=== PATIENT | female | born 1980 | race Caucasian/White ===

== ENCOUNTER 2021-12-31 14:11 | Inpatient (IN) | payer OTHER ==
[2021-12-31] MEDS ORDERED: IBUPROFEN 400 MG TABLET (FP) PO PRN (15:18)
[2021-12-31] MEDS ORDERED: METHOCARBAMOL 500 MG TABLET PO PRN (15:18)
[2021-12-31] MEDS ORDERED: MAG HYDROX/AL HYDROX/SIMETH 30 ML UNIT-DOSE CUP PO PRN (15:18)
[2021-12-31] MEDS ORDERED: ONDANSETRON *ODT* 4 MG TABLET SL PRN (15:18)
[2021-12-31] MEDS ORDERED: BISMUTH SUBSALICYLATE 524 MG/30 ML PO PRN (15:18)
[2021-12-31] MEDS ORDERED: MAGNESIUM CITRATE 300 ML BOTTLE PO PRN (15:18)
[2021-12-31] MEDS ORDERED: ACETAMINOPHEN 325 MG TABLET (FP) PO PRN ×2 (15:18)
[2021-12-31] MEDS ORDERED: MENTHOL/PHENOL 1 EACH UD MM PRN (15:18)
[2021-12-31] MEDS ORDERED: MAGNESIUM HYDROX 2400MG/30ML ORAL SUSPENSION 30 ML CUP PO PRN (15:18)
[2021-12-31] MEDS ORDERED: LOPERAMIDE HCL 2 MG CAPSULE PO PRN (15:18)
[2021-12-31 16:06] VITALS: BMI 38.2
[2021-12-31] MEDS: NICOTINE 10 MG CARTRIDGE (INHALER) IH PRN (19:43)
[2021-12-31] MEDS: hydrOXYzine PAMOATE 25 MG CAPSULE (FP) PO SCH ×2 (19:45→22:02)
[2021-12-31] MEDS ORDERED: MELATONIN 5 MG TABLETS PO SCH (22:00)
[2021-12-31] MEDS ORDERED: THIAMINE HCL 100 MG TABLET (FP) PO SCH (22:00)
[2022-01-01] MEDS: hydrOXYzine PAMOATE 25 MG CAPSULE (FP) PO SCH ×4 (05:18→18:09)
[2022-01-01] MEDS ORDERED: PRENATAL VITAMINS W/ FOLIC ACID TABLET (FP) PO SCH (10:00)
[2022-01-01] MEDS ORDERED: lamoTRIgine 25 MG TABLET PO SCH (10:00)
[2022-01-01] MEDS ORDERED: SERTRALINE HCL 50 MG TABLET (FP) PO SCH (10:00)
[2022-01-01 11:18] LABS: CALCIUM 8.2 mg/dL (8.5-10.1)
[2022-01-01 11:19] LABS: ALBUMIN 2.9 g/dl (3.4-5.0); BLOOD UREA NITROGEN 13.2 mg/dL (7-18)
[2022-01-01 11:22] LABS: CREATININE 0.8 mg/dL (0.55-1.3)
[2022-01-01 11:23] LABS: BILIRUBIN,TOTAL 0.2 mg/dL (0.2-1)
[2022-01-01 11:26] LABS: HEMATOCRIT 34.6 % (32.4-45.2); MCH 27.1 pg (25.7-33.7); MCHC 34.5 g/dl (32.0-36.0); MEAN CELL VOLUME 78.3 fl (80-96); MEAN PLT VOLUME 8.7 fl (7.5-11.1); PLATELET COUNT 238 10^3/uL (134-434); RBC 4.42 M/mm3 (3.60-5.2); RDW 16.2 % (11.6-15.6); WHITE BLOOD COUNT 6.9 K/mm3 (4.0-10.0)
[2022-01-01] MEDS ORDERED: CALCIUM 250MG/VIT-D 125 UNITS 1 COMBO TABLET PO SCH (11:45)
[2022-01-01] MEDS ORDERED: FLU VACC QS2021-22(6MOS UP)/PF 60 MCG/0.5 ML SYRINGE IM ONE (12:00)
[2022-01-01 12:06] LABS: HIV INTERPRETATION NEGATIVE (NEGATIVE)
[2022-01-01] MEDS: NICOTINE 10 MG CARTRIDGE (INHALER) IH PRN (17:59)
[2022-01-01 19:34] VITALS: BP 129/78; PULSE 84; TEMP 97.3
[2022-01-01] MEDS ORDERED: MELATONIN 5 MG TABLETS PO SCH (22:00)
[2022-01-02 13:07] LABS: SARS-CoV-2 NAA Not Detected (Not Detected)
== END 2022-01-01 20:54 | disposition other institution (70) | DRG 774 ==
LOC: YASAS 14:11 → Y6N 16:48
PROVIDERS: ADMIT Allergy & Immunology; ATTEND Allergy & Immunology
PROC: HZ2ZZZZ Detoxification Services for Substance Abuse Treatment (ICD-10-PCS; principal; 2021-12-31)
DX: F14.20 Cocaine dependence, uncomplicated (principal); F10.10 Alcohol abuse, uncomplicated; F17.210 Nicotine dependence, cigarettes, uncomplicated; F31.9 Bipolar disorder, unspecified; K76.0 Fatty (change of) liver, not elsewhere classified
CPT/HCPCS: 36415; 80053; 81025; 85027; 86780; 87389; 87811; 90686; C9803-CS; G0008; U0003; U0005

== ENCOUNTER 2022-01-01 21:53 | Inpatient (IN) | payer OTHER ==
[2022-01-02] MEDS ORDERED: ACETAMINOPHEN 325 MG TABLET (FP) PO PRN (00:17)
[2022-01-02] MEDS ORDERED: guaiFENesin 200 MG/10 ML 10 ML UNIT-DOSE CUPS PO PRN (00:17)
[2022-01-02] MEDS ORDERED: LOPERAMIDE HCL 2 MG CAPSULE PO PRN (00:17)
[2022-01-02] MEDS ORDERED: MAG HYDROX/AL HYDROX/SIMETH 30 ML UNIT-DOSE CUP PO PRN (00:17)
[2022-01-02] MEDS ORDERED: MAGNESIUM CITRATE 300 ML BOTTLE PO PRN (00:17)
[2022-01-02] MEDS ORDERED: MENTHOL/PHENOL 1 EACH UD MM PRN (00:17)
[2022-01-02] MEDS ORDERED: P-EPHED 60MG/TRIPROLIDI 2.5MG TABLET PO PRN (00:17)
[2022-01-02] MEDS ORDERED: MELATONIN 5 MG TABLETS PO PRN (00:17)
[2022-01-02] MEDS: MELATONIN 5 MG TABLETS PO PRN ×2 (02:03→21:32)
[2022-01-02] MEDS: hydrOXYzine PAMOATE 25 MG CAPSULE (FP) PO PRN (06:28)
[2022-01-02] MEDS: NICOTINE 10 MG CARTRIDGE (INHALER) IH PRN (07:16)
[2022-01-02] MEDS: PRENATAL VITAMINS W/ FOLIC ACID TABLET (FP) PO SCH (10:12)
[2022-01-02] MEDS: NICOTINE 7 MG/24 HOURS TOPICAL PATCH TD SCH (10:12)
[2022-01-02] MEDS: SERTRALINE HCL 50 MG TABLET (FP) PO SCH (10:12)
[2022-01-02] MEDS: lamoTRIgine 25 MG TABLET PO SCH (10:13)
[2022-01-02] MEDS: THIAMINE HCL 100 MG TABLET (FP) PO SCH (21:32)
[2022-01-03] MEDS: hydrOXYzine PAMOATE 25 MG CAPSULE (FP) PO PRN ×2 (00:12→21:14)
[2022-01-03] MEDS: SERTRALINE HCL 50 MG TABLET (FP) PO SCH (09:59)
[2022-01-03] MEDS: PRENATAL VITAMINS W/ FOLIC ACID TABLET (FP) PO SCH (09:59)
[2022-01-03] MEDS: lamoTRIgine 25 MG TABLET PO SCH (10:00)
[2022-01-03] MEDS: NICOTINE 7 MG/24 HOURS TOPICAL PATCH TD SCH (10:00)
[2022-01-03] MEDS: NICOTINE 10 MG CARTRIDGE (INHALER) IH PRN (10:01)
[2022-01-03] MEDS: MELATONIN 5 MG TABLETS PO PRN (21:14)
[2022-01-03] MEDS: THIAMINE HCL 100 MG TABLET (FP) PO SCH (21:14)
[2022-01-04] MEDS: NICOTINE 10 MG CARTRIDGE (INHALER) IH PRN ×3 (01:28→21:22)
[2022-01-04] MEDS: lamoTRIgine 25 MG TABLET PO SCH (10:01)
[2022-01-04] MEDS: PRENATAL VITAMINS W/ FOLIC ACID TABLET (FP) PO SCH (10:01)
[2022-01-04] MEDS: NICOTINE 7 MG/24 HOURS TOPICAL PATCH TD SCH (10:01)
[2022-01-04] MEDS: SERTRALINE HCL 50 MG TABLET (FP) PO SCH (10:02)
[2022-01-04] MEDS: MAGNESIUM HYDROX 2400MG/30ML ORAL SUSPENSION 30 ML CUP PO PRN (10:03)
[2022-01-04 14:08] LABS: SARS-CoV-2 NAA Not Detected (Not Detected)
[2022-01-04 19:34] LABS: EPI CELLS 9 /uL (0-25.1); HYALINE CASTS 1 /uL (0-3.1); PH,URINE 6.5 (5.0-8.0); URINE APPEARANCE CLEAR; URINE BACTERIA 192 /uL (0-1359); URINE BILIRUBIN NEGATIVE (NEGATIVE); URINE COLOR YELLOW; URINE GLUCOSE (UA) NEGATIVE (NEGATIVE); URINE KETONE NEGATIVE (NEGATIVE); URINE LEUK ESTERASE NEGATIVE (NEGATIVE); URINE NITRITE NEGATIVE (NEGATIVE); URINE PROTEIN NEGATIVE (NEGATIVE); URINE RBC 43 /uL (0-23.9); URINE UROBILINOGEN 0.2 mg/dL (0.2-1.0); URINE WBC 8 /uL (0-25.8)
[2022-01-04 20:01] LABS: URINE CRYSTALS FEW /hpf
[2022-01-04] MEDS: THIAMINE HCL 100 MG TABLET (FP) PO SCH (21:20)
[2022-01-04] MEDS: MELATONIN 5 MG TABLETS PO PRN (21:20)
[2022-01-04] MEDS: hydrOXYzine PAMOATE 25 MG CAPSULE (FP) PO PRN (23:19)
[2022-01-05] MEDS: NICOTINE 10 MG CARTRIDGE (INHALER) IH PRN ×3 (10:15→21:35)
[2022-01-05] MEDS: NICOTINE 7 MG/24 HOURS TOPICAL PATCH TD SCH (10:15)
[2022-01-05] MEDS: hydrOXYzine PAMOATE 25 MG CAPSULE (FP) PO PRN ×2 (10:15→21:34)
[2022-01-05] MEDS: SERTRALINE HCL 50 MG TABLET (FP) PO SCH (10:15)
[2022-01-05] MEDS: PRENATAL VITAMINS W/ FOLIC ACID TABLET (FP) PO SCH (10:15)
[2022-01-05] MEDS: MAGNESIUM HYDROX 2400MG/30ML ORAL SUSPENSION 30 ML CUP PO PRN (10:17)
[2022-01-05] MEDS: lamoTRIgine 25 MG TABLET PO SCH (10:44)
[2022-01-05] MEDS: THIAMINE HCL 100 MG TABLET (FP) PO SCH (21:34)
[2022-01-05] MEDS: MELATONIN 5 MG TABLETS PO PRN (21:35)
[2022-01-06] MEDS: lamoTRIgine 25 MG TABLET PO SCH (10:31)
[2022-01-06] MEDS: NICOTINE 7 MG/24 HOURS TOPICAL PATCH TD SCH (10:31)
[2022-01-06] MEDS: hydrOXYzine PAMOATE 25 MG CAPSULE (FP) PO PRN ×3 (10:31→21:32)
[2022-01-06] MEDS: SERTRALINE HCL 50 MG TABLET (FP) PO SCH (10:31)
[2022-01-06] MEDS: PRENATAL VITAMINS W/ FOLIC ACID TABLET (FP) PO SCH (10:31)
[2022-01-06] MEDS: NICOTINE 10 MG CARTRIDGE (INHALER) IH PRN ×3 (10:32→21:32)
[2022-01-06] MEDS: MELATONIN 5 MG TABLETS PO PRN (21:32)
[2022-01-06] MEDS: THIAMINE HCL 100 MG TABLET (FP) PO SCH (21:32)
[2022-01-07] MEDS: NICOTINE 10 MG CARTRIDGE (INHALER) IH PRN ×3 (06:32→21:53)
[2022-01-07] MEDS: lamoTRIgine 25 MG TABLET PO SCH (10:18)
[2022-01-07] MEDS: hydrOXYzine PAMOATE 25 MG CAPSULE (FP) PO PRN ×2 (10:19→21:31)
[2022-01-07] MEDS: PRENATAL VITAMINS W/ FOLIC ACID TABLET (FP) PO SCH (10:19)
[2022-01-07] MEDS: NICOTINE 7 MG/24 HOURS TOPICAL PATCH TD SCH (10:19)
[2022-01-07] MEDS: SERTRALINE HCL 50 MG TABLET (FP) PO SCH (10:19)
[2022-01-07] MEDS: MAGNESIUM HYDROX 2400MG/30ML ORAL SUSPENSION 30 ML CUP PO PRN (10:20)
[2022-01-07] MEDS: THIAMINE HCL 100 MG TABLET (FP) PO SCH (21:31)
[2022-01-07] MEDS: MELATONIN 5 MG TABLETS PO PRN (21:31)
[2022-01-08] MEDS: hydrOXYzine PAMOATE 25 MG CAPSULE (FP) PO PRN ×3 (06:49→21:29)
[2022-01-08] MEDS: lamoTRIgine 25 MG TABLET PO SCH (10:09)
[2022-01-08] MEDS: PRENATAL VITAMINS W/ FOLIC ACID TABLET (FP) PO SCH (10:09)
[2022-01-08] MEDS: SERTRALINE HCL 50 MG TABLET (FP) PO SCH (10:09)
[2022-01-08] MEDS: NICOTINE 7 MG/24 HOURS TOPICAL PATCH TD SCH (10:09)
[2022-01-08] MEDS: NICOTINE 10 MG CARTRIDGE (INHALER) IH PRN ×3 (10:09→21:40)
[2022-01-08] MEDS: IBUPROFEN 400 MG TABLET (FP) PO PRN (12:00)
[2022-01-08] MEDS: THIAMINE HCL 100 MG TABLET (FP) PO SCH (21:29)
[2022-01-08] MEDS: MELATONIN 5 MG TABLETS PO PRN (21:29)
[2022-01-08] MEDS: MAGNESIUM HYDROX 2400MG/30ML ORAL SUSPENSION 30 ML CUP PO PRN (21:40)
[2022-01-09] MEDS: IBUPROFEN 400 MG TABLET (FP) PO PRN (02:38)
[2022-01-09] MEDS: hydrOXYzine PAMOATE 25 MG CAPSULE (FP) PO PRN ×3 (03:25→21:41)
[2022-01-09] MEDS: NICOTINE 10 MG CARTRIDGE (INHALER) IH PRN ×3 (10:20→21:41)
[2022-01-09] MEDS: SERTRALINE HCL 50 MG TABLET (FP) PO SCH (10:20)
[2022-01-09] MEDS: PRENATAL VITAMINS W/ FOLIC ACID TABLET (FP) PO SCH (10:20)
[2022-01-09] MEDS: lamoTRIgine 25 MG TABLET PO SCH (10:20)
[2022-01-09] MEDS: NICOTINE 7 MG/24 HOURS TOPICAL PATCH TD SCH (10:20)
[2022-01-09] MEDS: MAGNESIUM HYDROX 2400MG/30ML ORAL SUSPENSION 30 ML CUP PO PRN (16:19)
[2022-01-09] MEDS: MELATONIN 5 MG TABLETS PO PRN (21:41)
[2022-01-09] MEDS: THIAMINE HCL 100 MG TABLET (FP) PO SCH (21:41)
[2022-01-10] MEDS: NICOTINE 10 MG CARTRIDGE (INHALER) IH PRN ×3 (08:40→21:41)
[2022-01-10] MEDS: NICOTINE 7 MG/24 HOURS TOPICAL PATCH TD SCH (09:20)
[2022-01-10] MEDS: PRENATAL VITAMINS W/ FOLIC ACID TABLET (FP) PO SCH (09:20)
[2022-01-10] MEDS: lamoTRIgine 25 MG TABLET PO SCH (09:21)
[2022-01-10] MEDS: SERTRALINE HCL 50 MG TABLET (FP) PO SCH (09:21)
[2022-01-10] MEDS: hydrOXYzine PAMOATE 25 MG CAPSULE (FP) PO PRN ×3 (09:22→21:41)
[2022-01-10] MEDS: IBUPROFEN 400 MG TABLET (FP) PO PRN ×2 (09:22→22:13)
[2022-01-10] MEDS: MAGNESIUM HYDROX 2400MG/30ML ORAL SUSPENSION 30 ML CUP PO PRN (17:45)
[2022-01-10] MEDS: THIAMINE HCL 100 MG TABLET (FP) PO SCH (21:41)
[2022-01-10] MEDS: MELATONIN 5 MG TABLETS PO PRN (21:42)
[2022-01-11] MEDS: lamoTRIgine 25 MG TABLET PO SCH (10:29)
[2022-01-11] MEDS: PRENATAL VITAMINS W/ FOLIC ACID TABLET (FP) PO SCH (10:29)
[2022-01-11] MEDS: SERTRALINE HCL 50 MG TABLET (FP) PO SCH (10:29)
[2022-01-11] MEDS: NICOTINE 10 MG CARTRIDGE (INHALER) IH PRN ×3 (10:30→21:45)
[2022-01-11] MEDS: NICOTINE 7 MG/24 HOURS TOPICAL PATCH TD SCH (10:30)
[2022-01-11] MEDS: hydrOXYzine PAMOATE 25 MG CAPSULE (FP) PO PRN ×2 (10:31→21:44)
[2022-01-11] MEDS: IBUPROFEN 400 MG TABLET (FP) PO PRN (16:58)
[2022-01-11] MEDS: MELATONIN 5 MG TABLETS PO PRN (21:44)
[2022-01-11] MEDS: THIAMINE HCL 100 MG TABLET (FP) PO SCH (21:44)
[2022-01-12] MEDS: IBUPROFEN 400 MG TABLET (FP) PO PRN ×3 (07:37→22:42)
[2022-01-12] MEDS: SERTRALINE HCL 50 MG TABLET (FP) PO SCH (10:32)
[2022-01-12] MEDS: PRENATAL VITAMINS W/ FOLIC ACID TABLET (FP) PO SCH (10:32)
[2022-01-12] MEDS: lamoTRIgine 25 MG TABLET PO SCH (10:32)
[2022-01-12] MEDS: NICOTINE 7 MG/24 HOURS TOPICAL PATCH TD SCH (10:33)
[2022-01-12] MEDS: hydrOXYzine PAMOATE 25 MG CAPSULE (FP) PO PRN ×2 (10:34→21:55)
[2022-01-12] MEDS: NICOTINE 10 MG CARTRIDGE (INHALER) IH PRN ×2 (10:35→22:11)
[2022-01-12] MEDS: MAGNESIUM HYDROX 2400MG/30ML ORAL SUSPENSION 30 ML CUP PO PRN (10:37)
[2022-01-12] MEDS ORDERED: ACETAMINOPHEN 325 MG TABLET (FP) PO PRN (13:54)
[2022-01-12] MEDS ORDERED: NALTREXONE HCL 50 MG TABLET PO SCH (15:45)
[2022-01-12] MEDS: THIAMINE HCL 100 MG TABLET (FP) PO SCH (21:54)
[2022-01-12] MEDS: MELATONIN 5 MG TABLETS PO PRN (21:55)
[2022-01-13] MEDS: IBUPROFEN 400 MG TABLET (FP) PO PRN ×2 (07:25→17:11)
[2022-01-13] MEDS ORDERED: NALTREXONE HCL 50 MG TABLET PO SCH (10:00)
[2022-01-13] MEDS ORDERED: NALTREXONE HCL 50 MG TABLET PO ONE (10:15)
[2022-01-13] MEDS: PRENATAL VITAMINS W/ FOLIC ACID TABLET (FP) PO SCH (10:37)
[2022-01-13] MEDS: SERTRALINE HCL 50 MG TABLET (FP) PO SCH (10:37)
[2022-01-13] MEDS: NICOTINE 7 MG/24 HOURS TOPICAL PATCH TD SCH (10:37)
[2022-01-13] MEDS: lamoTRIgine 25 MG TABLET PO SCH (10:37)
[2022-01-13] MEDS: NICOTINE 10 MG CARTRIDGE (INHALER) IH PRN ×3 (10:38→21:31)
[2022-01-13] MEDS: THIAMINE HCL 100 MG TABLET (FP) PO SCH (21:31)
[2022-01-13] MEDS: hydrOXYzine PAMOATE 25 MG CAPSULE (FP) PO PRN (21:31)
[2022-01-13] MEDS: MELATONIN 5 MG TABLETS PO PRN (21:31)
[2022-01-14] MEDS: PRENATAL VITAMINS W/ FOLIC ACID TABLET (FP) PO SCH (10:15)
[2022-01-14] MEDS: NALTREXONE HCL 50 MG TABLET PO SCH (10:16)
[2022-01-14] MEDS: NICOTINE 10 MG CARTRIDGE (INHALER) IH PRN ×2 (10:16→21:37)
[2022-01-14] MEDS: SERTRALINE HCL 50 MG TABLET (FP) PO SCH (10:16)
[2022-01-14] MEDS: NICOTINE 7 MG/24 HOURS TOPICAL PATCH TD SCH (10:16)
[2022-01-14] MEDS: hydrOXYzine PAMOATE 25 MG CAPSULE (FP) PO PRN ×3 (10:16→21:36)
[2022-01-14] MEDS: lamoTRIgine 25 MG TABLET PO SCH (10:52)
[2022-01-14] MEDS: IBUPROFEN 400 MG TABLET (FP) PO PRN ×2 (10:54→20:49)
[2022-01-14] MEDS: MAGNESIUM HYDROX 2400MG/30ML ORAL SUSPENSION 30 ML CUP PO PRN (10:55)
[2022-01-14] MEDS ORDERED: NALTREXONE MICROSPHERES (VIVITROL) 380 MG DISP.SYRIN IM ONE (15:35)
[2022-01-14] MEDS: NICOTINE POLACRILEX 2 MG GUM BUC PRN ×2 (17:04→21:37)
[2022-01-14] MEDS: MELATONIN 5 MG TABLETS PO PRN (21:35)
[2022-01-14] MEDS: THIAMINE HCL 100 MG TABLET (FP) PO SCH (21:36)
[2022-01-15 07:59] VITALS: BP 100/56; PULSE 62; TEMP 97.7
[2022-01-15] MEDS: NALTREXONE HCL 50 MG TABLET PO SCH (09:54)
[2022-01-15] MEDS: PRENATAL VITAMINS W/ FOLIC ACID TABLET (FP) PO SCH (09:54)
[2022-01-15] MEDS: hydrOXYzine PAMOATE 25 MG CAPSULE (FP) PO PRN (09:54)
[2022-01-15] MEDS: SERTRALINE HCL 50 MG TABLET (FP) PO SCH (09:54)
[2022-01-15] MEDS: NICOTINE 7 MG/24 HOURS TOPICAL PATCH TD SCH (09:55)
[2022-01-15] MEDS: lamoTRIgine 25 MG TABLET PO SCH (09:56)
[2022-01-15] MEDS: NICOTINE 10 MG CARTRIDGE (INHALER) IH PRN (10:05)
== END 2022-01-15 10:15 | disposition other institution (70) | DRG 772 ==
LOC: YASAS 21:53 → Y5N 21:56
PROVIDERS: ADMIT Allergy & Immunology; ATTEND Allergy & Immunology
PROC: HZ42ZZZ Group Counseling for Substance Abuse Treatment, Cognitive-Behavioral (ICD-10-PCS; principal; 2022-01-01)
DX: F10.20 Alcohol dependence, uncomplicated (principal); F11.20 Opioid dependence, uncomplicated; F14.20 Cocaine dependence, uncomplicated; F12.20 Cannabis dependence, uncomplicated; F17.210 Nicotine dependence, cigarettes, uncomplicated; F19.280 Other psychoactive substance dependence with psychoactive substance-induced anxiety disorder; F31.9 Bipolar disorder, unspecified; Z51.81 Encounter for therapeutic drug level monitoring; Z79.899 Other long term (current) drug therapy
CPT/HCPCS: 36415; 81003; 87086; 87491; 87591; 87661; C9803-CS; U0003; U0005